=== PATIENT | female | born 1965 | race Caucasian/White ===

== ENCOUNTER 2019-08-13 10:31 | Emergency (ER) | payer BC ==
[2019-08-13 11:06] VITALS: BP 141/81
--- NOTE | 2019-08-13 11:38 | ER Document Report ---
HPI - HPI Patient complains to provider of: Right wrist pain Time Seen by Provider: 08/13/19 11:34 Onset: Just prior to arrival Onset/Duration: Sudden Quality of pain: Achy Context: 53-year-old female presents emergency department complaints of right wrist pain. Patient was running fell on her outstretched hand. Complains of pain to the right wrist. Denies other injuries. Declines pain medication. Patient is from [place] visiting her daughter. Associated Symptoms: None Exacerbated by: Movement Relieved by: Denies Similar symptoms previously: No Recently seen / treated by doctor: No Past Medical History - General Information source: Patient - Social History Smoking Status: Unknown if Ever Smoked Frequency of alcohol use: None Drug Abuse: None Lives with: Family Course - Vital Signs Vital signs: Temp Pulse Resp BP Pulse Ox 97.4 F 55 L 16 141/81 H 100 08/13/19 11:04 08/13/19 11:04 08/13/19 11:04 08/13/19 11:04 08/13/19 11:04
--- NOTE | 2019-08-13 11:52 | ER Document Report ---
ED Medical Screen (RME) - General Chief Complaint: Wrist Pain Stated Complaint: FALL/WRIST PAIN Time Seen by Provider: 08/13/19 11:34 Mode of Arrival: Ambulatory Information source: Patient Notes: 53-year-old female presents emergency department complaints of right wrist pain. Patient was running fell on her outstretched hand. Complains of pain to the right wrist. Obvious deformity. Denies other injuries. Declines pain medication. Denies past medical history of injury to the wrist patient is from [place] visiting her daughter. I have greeted and performed a rapid initial assessment of this patient. A comprehensive ED assessment and evaluation of the patient, analysis of test results and completion of the medical decision making process will be conducted by additional ED providers. TRAVEL OUTSIDE OF THE [place] IN LAST 30 DAYS: No Past Medical History - Social History Frequency of alcohol use: None Drug Abuse: None Physical Exam - Vital signs Vitals: Temp Pulse Resp BP Pulse Ox 97.4 F 55 L 16 141/81 H 100 08/13/19 11:04 08/13/19 11:04 08/13/19 11:04 08/13/19 11:04 08/13/19 11:04 Course - Vital Signs Vital signs: Temp Pulse Resp BP Pulse Ox 97.4 F 55 L 16 141/81 H 100 08/13/19 11:04 08/13/19 11:04 08/13/19 11:04 08/13/19 11:04 08/13/19 11:04
--- NOTE | 2019-08-13 12:15 | RADIOLOGY REPORT (SQ) ---
EXAM DESCRIPTION: WRIST RIGHT 3 VIEWS COMPLETED DATE/TIME: 08/13/2019 11:53 am REASON FOR STUDY: fall, pain COMPARISON: None. NUMBER OF VIEWS: Three views. TECHNIQUE: AP, lateral, and oblique radiographic images acquired of the right wrist. LIMITATIONS: None. FINDINGS: MINERALIZATION: Normal. BONES: Comminuted impacted fracture of the distal radius with angulation. Minimally displaced fractu re of the tip of the ulnar styloid. SOFT TISSUES: No soft tissue swelling. No foreign body. OTHER: No other significant finding. IMPRESSION: FRACTURES OF THE DISTAL RADIUS AND ULNAR STYLOID. TECHNICAL DOCUMENTATION: JOB ID: [id number]- All Rights Reserved Reading location - IP/workstation name: [email or web address]
[2019-08-13] MEDS ORDERED: IBUPROFEN 800 MG TABLET PO ONE (12:23)
[2019-08-13] MEDS ORDERED: HYDROMORPHONE HCL INJ/PF 2 MG/ML AMPULE IM ONE (12:44)
--- NOTE | 2019-08-13 12:56 | ER Document Report ---
ED General - General Chief Complaint: Wrist Pain Stated Complaint: FALL/WRIST PAIN Time Seen by Provider: 08/13/19 11:34 Mode of Arrival: Ambulatory TRAVEL OUTSIDE OF THE [place] IN LAST 30 DAYS: No - HPI Patient complains to provider of: Right wrist pain Notes: Pleasant 53-year-old female presents after a fall while jogging. Normally healthy female no blood thinners, no chronic medical problems was jogging tripped and fell on outstretched right hand 10/10 sharp pain distal radius no radiation nothing makes it better or worse. Patient does not live in the community believe in [place] there are visiting on vacation. Scheduled to go home early next week. - Related Data Allergies/Adverse Reactions: iodine Adverse Reaction (Intermediate, Verified 08/13/19 13:25) Past Medical History - General Information source: Patient - Social History Smoking Status: Never Smoker Frequency of alcohol use: None Drug Abuse: None Family History: None Patient has suicidal ideation: No Patient has homicidal ideation: No Review of Systems - Review of Systems Notes: REVIEW OF SYSTEMS: CONSTITUTIONAL: -fevers, -chills EENT: -eye pain, -difficulty swallowing, -nasal congestion CARDIOVASCULAR: -chest pain, -syncope. RESPIRATORY: -cough, -SOB GASTROINTESTINAL: -abdominal pain, -nausea, -vomiting, -diarrhea GENITOURINARY: -dysuria, -hematuria MUSCULOSKELETAL: positive right wrist pain SKIN: -rash or skin lesions. HEMATOLOGIC: -easy bruising or bleeding. LYMPHATIC: -swollen, enlarged glands. NEUROLOGICAL: -altered mental status or loss of consciousness, -headache, - neurologic symptoms PSYCHIATRIC: -anxiety, -depression. ALL OTHER SYSTEMS REVIEWED AND NEGATIVE. Physical Exam - Vital signs Vitals: Temp Pulse Resp BP Pulse Ox 97.4 F 55 L 16 141/81 H 100 08/13/19 11:04 08/13/19 11:04 08/13/19 11:04 08/13/19 11:04 08/13/19 11:04 - Notes Notes: PHYSICAL EXAMINATION: GENERAL: Well-appearing, well-nourished and in no acute distress. HEAD: Atraumatic, normocephalic. EYES: Pupils equal round and reactive to light, extraocular movements intact, sclera anicteric, conjunctiva are normal. ENT: nares patent, oropharynx clear without exudates. Moist mucous membranes. NECK: Normal range of motion, supple without lymphadenopathy LUNGS: Breath sounds clear to auscultation bilaterally and equal. No wheezes rales or rhonchi. HEART: Regular rate and rhythm without murmurs EXTREMITIES: Pain located right wrist bruising overlying area. PSYCH: Normal mood, normal affect. SKIN: Warm, Dry, normal turgor, no rashes or lesions noted. Course - Re-evaluation Re-evalutation: 08/13/19 14:11 Pleasant female presents after fall. Patient sustained a distal radius fracture. Re-assuring physical exam. Patient neurovascularly intact pre-and post splint application and reduction. Will obtain postreduction film. Postreduction film shows improved anatomic alignment all of the imaging studies will be burned to disc. Patient lives in [place] will follow-up at orthopedics in [facility]. Patient be discharged home splint care oral analgesia. 08/13/19 15:31 - Vital Signs Vital signs: Temp Pulse Resp BP Pulse Ox 97.4 F 55 L 16 141/81 H 100 08/13/19 11:04 08/13/19 11:04 08/13/19 11:04 08/13/19 11:04 08/13/19 11:04 Procedures - Immobilization Right Upper Wrist Pre-Proc Neuro Vasc Exam: Normal Immobilizer type: Jewel wrap, Sugar tong Performed by: Provider Post-Proc Neuro Vasc Exam: Normal Alignment checked and good: Yes - Joint Reduction/Fracture Care Right Upper Wrist Consent obtained: Yes Conscious sedation: No Pre-procedure NV exam: Yes - normal Fracture: Closed Post-procedure NV exam: Yes - normal Reduction attempts: 1 Notes: 08/13/19 12:56 Closed reduction of distal radius fracture Discharge - Discharge Clinical Impression: Radius distal fracture Qualifiers: Encounter type: initial encounter Fracture type: closed Fracture morphology: unspecified fracture morphology Laterality: right Qualified Code(s): S52.501A - Unspecified fracture of the lower end of right radius, initial encounter for closed fracture Condition: Stable Disposition: HOME, SELF-CARE Instructions: Fractured Radius and Ulna ([facility]) Additional Instructions: Follow-up with orthopedic surgeon in [place] Prescriptions: Oxycodone Myristate [Xtampza ER] 9 mg PO BID 5 Days #10 cap.spr.12
--- NOTE | 2019-08-13 15:26 | RADIOLOGY REPORT (SQ) ---
EXAM DESCRIPTION: WRIST RIGHT 2 VIEWS COMPLETED DATE/TIME: 08/13/2019 2:23 pm REASON FOR STUDY: post reduction COMPARISON: 08/13/2019. NUMBER OF VIEWS: Two views. TECHNIQUE: AP and lateral radiographic images acquired of the right wrist. LIMITATIONS: None. FINDINGS: MINERALIZATION: Normal. BONES: Fracture of the distal radius, slight improved alignment following closed reduction. SOFT TISSUES: No soft tissue swelling. No foreign body. OTHER: No other significant finding. IMPRESSION: SLIGHT IMPROVED ALIGNMENT FOLLOWING CLOSED REDUCTION. TECHNICAL DOCUMENTATION: JOB ID: [id number] 2010 [id number]- All Rights Reserved Reading location - IP/workstation name: [email or web address]
== END 2019-08-13 15:15 | disposition home or self-care (01) ==
LOC: ER 10:31
DX: S52.591A Other fractures of lower end of right radius, initial encounter for closed fracture (principal); W19.XXXA Unspecified fall, initial encounter; Y93.02 Activity, running
CPT/HCPCS: 99283; 96372; 73100; 73110; 25605; J1170